=== PATIENT | male | born 1995 | race Caucasian/White ===

== ENCOUNTER 2017-10-01 17:58 | Emergency (ER) | payer BC ==
[2017-10-01] MEDS ORDERED: Bacitracin Zinc 1 Packet ONE (18:51)
[2017-10-01] MEDS ORDERED: Lidocaine 1% w/Epinephrine 1:100K 20 ML VIAL ONE (18:51)
[2017-10-01] MEDS ORDERED: Adacel (T-DAP) 0.5 ML VIAL ONE (18:51)
== END 2017-10-01 19:26 | disposition home or self-care (01) ==
LOC: ERS 17:58
DX: S61.412A Laceration without foreign body of left hand, initial encounter (principal); J45.909 Unspecified asthma, uncomplicated; F20.9 Schizophrenia, unspecified; W26.0XXA Contact with knife, initial encounter
CPT/HCPCS: 12002; 90471; 90715; J2001